=== PATIENT | female | born 1960 | race American Indian/Alaskan Native ===

== ENCOUNTER 2016-09-27 14:35 | Outpatient (CLI) | payer BC ==
--- NOTE | 2016-09-27 15:20 | XRay Report ---
ROUTINE CHEST, TWO VIEWS: HISTORY: Cough, fever, shortness of breath. No comparison. There are multiple bilateral nodular densities in both lungs which could represent masses or infiltrates. There is a small left pleural effusion. Left hemidiaphragm is elevated two rib levels compared to the right. Heart size and pulmonary vascularity are grossly normal. Right [id number]-[id number] is in good position. Subtle sclerotic lesions are suspected in the bony structures concerning for metastatic disease. IMPRESSION: Bilateral pulmonary masses versus infiltrates. Small left pleural effusion. Multiple bony lesions. Elevated left hemidiaphragm.
== END 2016-09-27 14:36 | disposition home or self-care (01) ==
LOC: SPVIMAG 14:35
PROVIDERS: ATTEND Internal Medicine Hematology
DX: R50.9 Fever, unspecified (principal); J90 Pleural effusion, not elsewhere classified; Q79.1 Other congenital malformations of diaphragm; M89.9 Disorder of bone, unspecified
CPT/HCPCS: 71020